=== PATIENT | male | born 1945 | race Hispanic/Latino ===

== ENCOUNTER → 2018-01-02 | Outpatient (CLI) | payer OTHER ==
[~2018-01-02] MED LIST: ALBU90AE IH; AMOX-426 PO; ASPI81TA40 PO; BENZ-51 PO; METO-391 PO; OSEL75 PO; RAMI5CAP21 PO; WARF4TAB8 PO
== END | disposition home or self-care (01) ==
LOC: OIH 10:37
PROVIDERS: ATTEND Orthopaedic Surgery
DX: M16.12 Unilateral primary osteoarthritis, left hip (principal); M24.052 Loose body in left hip; K57.90 Diverticulosis of intestine, part unspecified, without perforation or abscess without bleeding
CPT/HCPCS: 73700

== ENCOUNTER 2018-03-27 06:00 | Day surgery (SDC) | payer OTHER ==
[2018-03-25 10:35] VITALS: BP 124/74
[2018-03-25 10:40] LABS: BASOPHILS % (AUTO) 1.2 % (0.0-5.0); EOSINOPHILS % (AUTO) 1.8 % (0.0-8.0); HEMATOCRIT 43.8 % (42-54); LYMPHOCYTES % (AUTO) 32.9 % (21.0-51.0); MEAN CORPUSCULAR HEMOGLOBIN 31.6 pg (27.0-33.0); MEAN CORPUSCULAR HGB CONC 33.7 g/dL (32.0-36.0); MEAN CORPUSCULAR VOLUME 93.8 fL (79-99); MONOCYTES % (AUTO) 9.1 % (3.0-13.0); NUCLEATED RED BLOOD CELLS 0.2 % (0.0-0.19); PLATELET COUNT (AUTO) 198 K/uL (130-400); RED BLOOD CELL COUNT(AUTO) 4.67 MIL/uL (4.50-6.20); RED CELL DISTRIBUTION WIDTH 14.5 % (11.0-15.5); WHITE BLOOD COUNT (AUTO) 6.5 K/uL (4.8-10.8)
[2018-03-25 10:48] LABS: CREATININE 0.9 mg/dL (0.5-1.5); POTASSIUM 4.6 mmol/L (3.5-5.1)
[2018-03-25 10:53] LABS: APPEARANCE,URINE Clear (CLEAR); BILIRUBIN,URINE Negative (NEGATIVE); COLOR,URINE Yellow (YELLOW); GLUCOSE, URINE (UA) Negative (NEGATIVE); KETONES,URINE Negative (NEGATIVE); LEUKOCYTE ESTERASE ,URINE Negative (NEGATIVE); NITRATE,URINE Negative (NEGATIVE); OCCULT BLOOD,URINE Negative (NEGATIVE); PH,URINE 6.5 (5.0-8.0); PROTEIN,URINE Negative (NEGATIVE)
[2018-03-25 10:58] LABS: INR 2.23 (0.85-1.15); PARTIAL THROMBOPLASTIN TIME 37.8 SEC (26.3-35.5); PROTHROMBIN TIME 23.1 SEC (9.6-11.6)
[2018-03-27] VITALS (9 sets, daily range): BP systolic 110–143; BP diastolic 65–93
[~2018-03-27] VITALS: Ht 182.9 cm; Wt 78.9 kg
[~2018-03-27 06:00] MED LIST changes: -ALBU90AE IH; -AMOX-426 PO; +ATOR40TA69 PO; -BENZ-51 PO; +IBUP-2070 PO; -OSEL75 PO; -RAMI5CAP21 PO; +RAMI5CAP66 PO
[2018-03-27 06:33] LABS: INR 1.22 (0.85-1.15); PROTHROMBIN TIME 12.8 SEC (9.6-11.6)
[2018-03-27] MEDS ORDERED: WARF4TAB72 PO (06:50)
[2018-03-27] MEDS ORDERED: SODIUM CHLORIDE 0.9% 1000ML 1,000 ML IV ONE (06:59)
[2018-03-27] MEDS ORDERED: BIVALIRUDIN 250 MG/VIAL IV ONE (07:42)
[2018-03-27] MEDS ORDERED: IOHEXOL-350 50ML VIAL IV ONE (07:42)
[2018-03-27] MEDS ORDERED: NITROGLYCERIN 5 MG/ML 10 ML VIAL IV ONE (07:42)
[2018-03-27] MEDS ORDERED: LIDOCAINE HCL-MPF 2% 5ML VIAL ONE (07:42)
[2018-03-27] MEDS ORDERED: IOHEXOL 350 MG/ML 100ML INFUS..BTL IV ONE (07:42)
[2018-03-27] MEDS ORDERED: FENTANYL CITRATE PF 50 MCG/1 ML 2ML VIAL ONE (08:00)
[2018-03-27] MEDS ORDERED: MIDAZOLAM HCL 1 MG/ML 2ML VIAL ONE (08:00)
[2018-03-27] MEDS ORDERED: SODIUM CHLORIDE 0.9% 1000ML 1,000 ML IV SCH (08:36)
[2018-03-27] MEDS ORDERED: METOPROLOL TARTRATE 1 MG/ML 5ML VIAL IV PRN (08:45)
[2018-03-27] MEDS ORDERED: GLUCAGON 1MG KIT 1 MG ML IM PRN (08:45)
[2018-03-27] MEDS ORDERED: DEXTROSE 50%-WATER 50 ML DISP.SYRIN IV PRN (08:45)
[2018-03-27] MEDS ORDERED: NITROGLYCERIN 0.4 MG SL TAB SL PRN (08:45)
[2018-03-27] MEDS ORDERED: NITROGLYCERIN 4.1 GM SPRAY TL ONE (08:48)
[2018-03-27] MEDS ORDERED: MORPHINE SULFATE 2 MG/ML 1ML SYG IVP PRN (09:00)
[2018-03-27] MEDS ORDERED: ONDANSETRON HCL MDV 20ML 2 MG/ML VIAL IVP SCH (09:00)
[2018-03-27] MEDS ORDERED: INSULIN HUMULIN R 100 UNIT/ML 3ML SQ SCH (11:30)
== END 2018-03-27 13:23 | disposition home or self-care (01) ==
LOC: DAH 06:00
PROVIDERS: ATTEND Internal Medicine Cardiovascular Disease
DX: I25.118 Atherosclerotic heart disease of native coronary artery with other forms of angina pectoris (principal); I21.19 ST elevation (STEMI) myocardial infarction involving other coronary artery of inferior wall; I87.2 Venous insufficiency (chronic) (peripheral); I48.0 Paroxysmal atrial fibrillation; Z79.01 Long term (current) use of anticoagulants; Z95.5 Presence of coronary angioplasty implant and graft; Z80.9 Family history of malignant neoplasm, unspecified; Z83.3 Family history of diabetes mellitus; Z79.899 Other long term (current) drug therapy; I11.9 Hypertensive heart disease without heart failure; Z98.890 Other specified postprocedural states; I45.10 Unspecified right bundle-branch block
CPT/HCPCS: 36415 ×2; 71045; 80048; 81003; 85025; 85610 ×2; 85730 ×2; 93005 ×2; 93458; A4606; C1760; C1894 ×2; J0583; J1644; J2250; J3010; J3490 ×2; J7030; Q9965; Q9967 ×2; 99156; 99157

== ENCOUNTER → 2018-12-02 | Outpatient (CLI) | payer OTHER ==
[~2018-12-02] MED LIST changes: +WARF4TAB72 PO
== END | disposition home or self-care (01) ==
LOC: RAH 08:39
PROVIDERS: ATTEND Internal Medicine Gastroenterology
DX: K21.9 Gastro-esophageal reflux disease without esophagitis (principal); R14.2 Eructation
CPT/HCPCS: 74240

== ENCOUNTER 2018-12-11 11:29 | Day surgery (SDC) | payer OTHER ==
[~2018-12-11] VITALS: Ht 180.3 cm; Wt 74.2 kg
[2018-12-11] VITALS (20 sets, daily range): BP systolic 112–196; BP diastolic 63–130
[2018-12-11 12:51] LABS: BASOPHILS % (AUTO) 0.9 % (0.0-5.0); EOSINOPHILS % (AUTO) 0.9 % (0.0-8.0); HEMATOCRIT 43.6 % (42-54); MEAN CORPUSCULAR HEMOGLOBIN 33.3 pg (27.0-33.0); MEAN CORPUSCULAR HGB CONC 33.6 g/dL (32.0-36.0); MEAN CORPUSCULAR VOLUME 98.9 fL (79-99); MONOCYTES % (AUTO) 8.1 % (3.0-13.0); NEUTROPHILS % (AUTO) 65.1 % (40.0-77.0); NUCLEATED RED BLOOD CELLS 0.2 % (0.0-0.19); PLATELET COUNT (AUTO) 175 K/uL (130-400); RED BLOOD CELL COUNT(AUTO) 4.41 MIL/uL (4.50-6.20); RED CELL DISTRIBUTION WIDTH 14.8 % (11.0-15.5); WHITE BLOOD COUNT (AUTO) 6.5 K/uL (4.8-10.8)
[2018-12-11 13:04] LABS: CREATININE 1.3 mg/dL (0.5-1.5); POTASSIUM 4.7 mmol/L (3.5-5.1)
[2018-12-11] MEDS ORDERED: FENTANYL CITRATE PF 50 MCG/1 ML 2ML VIAL ONE (13:08)
[2018-12-11] MEDS ORDERED: MIDAZOLAM HCL 1 MG/ML 2ML VIAL ONE (13:09)
[2018-12-11] MEDS ORDERED: METOPROLOL TARTRATE 1 MG/ML 5ML VIAL IV ONE ×2 (13:19→13:24)
[2018-12-11] MEDS ORDERED: METOPROLOL TARTRATE 1 MG/ML 5ML VIAL IV SCH ×2 (13:30→15:45)
[2018-12-11] MEDS ORDERED: DIGOXIN 250 MCG/ML 2ML AMP IV SCH (13:30)
[2018-12-11] MEDS ORDERED: SUCR1TAB2 PO (13:45)
[2018-12-11] MEDS ORDERED: ESOM40CA54 PO (13:45)
[2018-12-11 13:46] LABS: B-TYPE NATRIURETIC PEPTIDE 768 pg/mL (0-100)
[2018-12-11] MEDS ORDERED: NALOXONE HCL 0.4 MG/1 ML ML ONE ×2 (13:56→13:58)
[2018-12-11] MEDS ORDERED: FLUMAZENIL 0.1MG/1ML 5ML VIAL IV ONE (13:59)
[2018-12-11] MEDS ORDERED: FUROSEMIDE 10 MG/ML 4ML VIAL IV SCH (15:00)
--- NOTE | 2018-12-11 16:07 | NUR ---
Time out for cardioversion called out at 1345, Doctor Hoang in the room, adminstered 2mg of versed at 1346,pt stable and awake, admnistered 50mcg of fentanyl at 1349, pt with eyes closed. Cardioverted at 1351. Pt was aroused when cardioverted, than closed his eyes. Oxygen level started dropping to 88 percent Dyana Craig RN was coming into the room to see procedure and assisted pt oxygen level by closing jaw, i applied oxygen at 10 liters, pt oxygen level at 100 percent and stable. Per doctor Hoang Narcan 0.4mg iv push was given at 1355. Pt stable but not arousable new order to administer at 1359 Flumazecan 0.2mg iv times one iv push. Pt was more arouable however doctor requested one more dose of Narcan 0.4mg iv push at 1401. Pt became arousable and alert. Continued to monitor patient post recovery.
== END 2018-12-11 17:53 | disposition home or self-care (01) ==
LOC: DAH 11:29
PROVIDERS: ATTEND Internal Medicine Cardiovascular Disease
DX: I48.0 Paroxysmal atrial fibrillation (principal); I25.119 Atherosclerotic heart disease of native coronary artery with unspecified angina pectoris; Z95.5 Presence of coronary angioplasty implant and graft; I11.9 Hypertensive heart disease without heart failure; I34.0 Nonrheumatic mitral (valve) insufficiency; I21.3 ST elevation (STEMI) myocardial infarction of unspecified site; R07.9 Chest pain, unspecified; Z79.899 Other long term (current) drug therapy; Z98.890 Other specified postprocedural states; Z79.01 Long term (current) use of anticoagulants
CPT/HCPCS: 36415; 80048; 83880; 85025; 92960; 93005; 93306; A4606; J1160; J1940; J2250; J2310 ×2; J3010; J3490 ×4; 99152

== ENCOUNTER → 2018-12-28 | Outpatient (CLI) | payer OTHER ==
[~2018-12-28] MED LIST changes: +ESOM40CA54 PO; +SUCR1TAB2 PO
== END | disposition home or self-care (01) ==
LOC: SHCH 08:29
PROVIDERS: ATTEND Internal Medicine Cardiovascular Disease
DX: I87.2 Venous insufficiency (chronic) (peripheral) (principal)
CPT/HCPCS: 93970

== ENCOUNTER 2019-01-13 05:41 | Day surgery (SDC) | payer OTHER ==
[~2019-01-13] VITALS: Ht 185.4 cm; Wt 71.2 kg
[2019-01-13] VITALS (19 sets, daily range): BP systolic 96–151; BP diastolic 41–92
[~2019-01-13 05:41] MED LIST changes: -ESOM40CA54 PO; -IBUP-2070 PO; +METF-444 PO; +PANT40TA PO; -WARF4TAB72 PO
[2019-01-13] MEDS ORDERED: SODIUM CHLORIDE 0.9% 1000ML 1,000 ML IV ONE (06:05)
[2019-01-13 07:19] LABS: INR 1.43 (0.85-1.15); PROTHROMBIN TIME 14.9 SEC (9.6-11.6)
[2019-01-13] MEDS ORDERED: ESMOLOL HCL 10 MG/ML 10 ML VIAL ONE (07:45)
--- NOTE | 2019-01-13 08:31 | NUR ---
Update Patient unresponsive to calling his name, sternal rub, yelling his name, and shaking his shoulder vigorously. Lisha from GI lab informed to tell Bubba Kaur CRNA when out of procedure as patient was vitally stable. Patient placed on a non-rebreather mask at 15L/min.
[2019-01-13] MEDS ORDERED: DEXTROSE 50%-WATER 50 ML DISP.SYRIN IV ONE (08:42)
--- NOTE | 2019-01-13 08:45 | NUR ---
Update Order to give half an amp of dextrose given per order by Bubba Kaur CRNA.
--- NOTE | 2019-01-13 08:50 | NUR ---
Update DR. COLEMAN CALLED BY Bubba MINAYA TO ASSESS PATIENT TOO. HE ASSESSED PATIENT'S DEEP TENDON REFLEXES TO BILATERAL BRACHIAL, KNEES, AND ACHILLES TENDONS 2+. PUPILS SLUGGISH TO LIGHT ACCOMMODATION BUT ARE ROUND AND EQUAL. HE STATED TO GIVE THE PATIENT 30-40 MORE MINUTES AND THEN CALL HIM IF HE DOES NOT WAKE UP.
== END 2019-01-13 09:30 | disposition home or self-care (01) ==
LOC: DAH 05:41 → ENDO 05:41
PROVIDERS: ATTEND Internal Medicine Gastroenterology
DX: K29.50 Unspecified chronic gastritis without bleeding (principal); R68.81 Early satiety; R12 Heartburn; I45.10 Unspecified right bundle-branch block; I10 Essential (primary) hypertension; I25.10 Atherosclerotic heart disease of native coronary artery without angina pectoris; E78.5 Hyperlipidemia, unspecified; I25.2 Old myocardial infarction; K21.9 Gastro-esophageal reflux disease without esophagitis; M19.90 Unspecified osteoarthritis, unspecified site; M54.5 Low back pain; Z79.82 Long term (current) use of aspirin; Z79.899 Other long term (current) drug therapy; N52.9 Male erectile dysfunction, unspecified; E11.9 Type 2 diabetes mellitus without complications; Z90.49 Acquired absence of other specified parts of digestive tract; Z98.890 Other specified postprocedural states
CPT/HCPCS: 36415; 43239; 82948 ×2; 85610; 88305; 93005; A4606; J3490; J7030; J7070

== ENCOUNTER → 2019-01-20 | Outpatient (CLI) | payer OTHER ==
[~2019-01-20] MED LIST changes: +ESOM40CA54 PO; +FURO20TA4 PO; +METO50CA PO; +WARF2TAB9 PO; +[UNRECOGNIZED DRUG - CODE] PO
== END | disposition home or self-care (01) ==
LOC: RAH 07:31
PROVIDERS: ATTEND Internal Medicine Gastroenterology
DX: K82.4 Cholesterolosis of gallbladder (principal)
CPT/HCPCS: 76700; 93975

== ENCOUNTER 2019-01-21 13:42 | Inpatient (IN) | payer OTHER ==
[~2019-01-21] VITALS: Ht 185.4 cm; Wt 69.6 kg
[~2019-01-21 13:42] MED LIST changes: -ESOM40CA54 PO; -FURO20TA4 PO; -METO50CA PO; -WARF2TAB9 PO; -[UNRECOGNIZED DRUG - CODE] PO
[2019-01-21] MEDS ORDERED: DIGOXIN 250 MCG/ML 2ML AMP ONE (14:49)
[2019-01-21 14:52] LABS: BASOPHILS % (AUTO) 1.3 % (0.0-5.0); EOSINOPHILS % (AUTO) 0.9 % (0.0-8.0); HEMATOCRIT 43.6 % (42-54); LYMPHOCYTES % (AUTO) 20.5 % (21.0-51.0); MEAN CORPUSCULAR HEMOGLOBIN 32.2 pg (27.0-33.0); MEAN CORPUSCULAR HGB CONC 33.2 g/dL (32.0-36.0); MEAN CORPUSCULAR VOLUME 97.2 fL (79-99); MONOCYTES % (AUTO) 7.5 % (3.0-13.0); NEUTROPHILS % (AUTO) 69.8 % (40.0-77.0); NUCLEATED RED BLOOD CELLS 0.1 % (0.0-0.19); PLATELET COUNT (AUTO) 186 K/uL (130-400); RED BLOOD CELL COUNT(AUTO) 4.49 MIL/uL (4.50-6.20); RED CELL DISTRIBUTION WIDTH 13.9 % (11.0-15.5)
[2019-01-21] MEDS ORDERED: SODIUM CHLORIDE 0.9% 50 ML IV ONE (14:57)
[2019-01-21 15:01] LABS: INR 1.8 (0.85-1.15); PARTIAL THROMBOPLASTIN TIME 32.4 SEC (26.3-35.5); PROTHROMBIN TIME 18.7 SEC (9.6-11.6)
[2019-01-21 15:07] LABS: CREATININE 1.1 mg/dL (0.5-1.5)
[2019-01-21 15:12] LABS: ALBUMIN 3.8 g/dL (3.5-5.0); BILIRUBIN,TOTAL 1.4 mg/dL (0.2-1.0); TOTAL PROTEIN, SERUM 6.3 g/dL (6.0-8.3)
[2019-01-21] MEDS ORDERED: DIGOXIN 250 MCG/ML 2ML AMP IV SCH ×2 (15:17→20:30)
[2019-01-21 15:29] LABS: B-TYPE NATRIURETIC PEPTIDE 568 pg/mL (0-100)
[2019-01-21] MEDS ORDERED: LIDOCAINE HCL-MPF 1% 2ML VIAL IJ PRN (15:30)
[2019-01-21] MEDS ORDERED: LACTULOSE 20 GM/30 ML UDCUP PO PRN (15:30)
[2019-01-21] MEDS ORDERED: ZOLPIDEM TARTRATE 5 MG TAB PO PRN (15:30)
[2019-01-21] MEDS ORDERED: POTASSIUM CHLORIDE 20MEQ/100ML 100 ML IV PRN (15:30)
[2019-01-21] MEDS ORDERED: POTASSIUM CHLORIDE 10% ELIXIR 20 MEQ/15 ML UDCUP PO PRN (15:30)
[2019-01-21] MEDS ORDERED: CLONIDINE HCL 0.1 MG TABLET PO PRN (15:30)
[2019-01-21] MEDS ORDERED: DILTIAZEM 125MG+100 ML NS 125 ML IV PRN (15:30)
[2019-01-21] MEDS ORDERED: METOPROLOL TARTRATE 1 MG/ML 5ML VIAL IV PRN (15:30)
[2019-01-21] MEDS ORDERED: [UNRECOGNIZED DRUG - CODE] PO (15:57)
[2019-01-21] MEDS ORDERED: WARF4TAB8 PO (15:57)
[2019-01-21] MEDS ORDERED: ESOM40CA54 PO (15:57)
[2019-01-21] MEDS ORDERED: WARF2TAB9 PO (15:57)
[2019-01-21] MEDS ORDERED: FURO20TA4 PO (15:57)
[2019-01-21] MEDS ORDERED: METO50CA PO (15:57)
[2019-01-21 16:07] VITALS: BP 149/77
[2019-01-21 19:00] VITALS: BP 141/72
[2019-01-21] MEDS: ATORVASTATIN CALCIUM 40 MG TABLET PO SCH ×2 (21:00→21:13)
[2019-01-21] MEDS: LISINOPRIL 20 MG TABLET PO SCH (21:13)
[2019-01-21] MEDS: METOPROLOL TARTRATE 50 MG TAB PO SCH (21:13)
[2019-01-21] MEDS: MAG HYDROX/AL HYDROX/SIMETH ES 30 ML SUSP UDCUP PO PRN (21:14)
[2019-01-21 23:00] VITALS: BP 147/85
[2019-01-22 03:00] VITALS: BP 154/80
[2019-01-22 04:21] LABS: HEMATOCRIT 41.5 % (42-54); MEAN CORPUSCULAR HEMOGLOBIN 32.2 pg (27.0-33.0); MEAN CORPUSCULAR VOLUME 97.7 fL (79-99); NUCLEATED RED BLOOD CELLS 0.1 % (0.0-0.19); PLATELET COUNT (AUTO) 179 K/uL (130-400); RED BLOOD CELL COUNT(AUTO) 4.25 MIL/uL (4.50-6.20); RED CELL DISTRIBUTION WIDTH 13.9 % (11.0-15.5); WHITE BLOOD COUNT (AUTO) 6.7 K/uL (4.8-10.8)
[2019-01-22 04:27] LABS: B-TYPE NATRIURETIC PEPTIDE 1050 pg/mL (0-100)
[2019-01-22 04:31] LABS: POTASSIUM 3.7 mmol/L (3.5-5.1)
[2019-01-22 07:00] VITALS: BP 158/89
[2019-01-22] MEDS: PANTOPRAZOLE SODIUM 40 MG TABLET.DR PO SCH (08:01)
[2019-01-22] MEDS: ASPIRIN 81MG TAB.CHEW PO SCH (08:01)
[2019-01-22] MEDS: METOPROLOL TARTRATE 50 MG TAB PO SCH ×2 (08:01→21:38)
[2019-01-22] MEDS: ENOXAPARIN SODIUM 80 MG/0.8 ML SQ SCH ×2 (08:03→21:38)
[2019-01-22] MEDS: POTASSIUM CHLORIDE 20 MEQ ERTAB PO PRN ×3 (08:14→21:45)
[2019-01-22] MEDS ORDERED: ATORVASTATIN CALCIUM 40 MG TABLET PO SCH (09:00)
[2019-01-22] MEDS ORDERED: METOPROLOL SUCCINATE 50 MG PO SCH (09:00)
[2019-01-22] MEDS ORDERED: FUROSEMIDE 20 MG TABLET PO SCH (09:00)
[2019-01-22] MEDS: FUROSEMIDE 10 MG/ML 4ML VIAL IV SCH ×2 (10:13→21:39)
[2019-01-22 11:55] VITALS: BP 118/78
[2019-01-22 12:06] LABS: CREATINE KINASE, TOTAL 75 U/L (21-232); MYOGLOBIN 47 ng/mL (10-92); TROPONIN I < 0.04 ng/mL (0.00-0.06)
--- NOTE | 2019-01-22 15:29 | NUR ---
DC PLAN VISIT WITH PATIENT AND FAMILY. PATIENT LIVES WITH SPOUSE. INDEPENDENT ABLE TO PERFORM ADL'S. PATIENT HAS NO SERVICES OR DME'S. FEELS SAFE TO RETURN HOME. Addendum: 01/22/19 at 1532 by CHRISTINE HERR RN CM Amended: Links added.
[2019-01-22 16:20] VITALS: BP 136/84
[2019-01-22] MEDS: MAG HYDROX/AL HYDROX/SIMETH ES 30 ML SUSP UDCUP PO PRN (18:12)
[2019-01-22 20:13] VITALS: BP 138/76
[2019-01-22] MEDS: LISINOPRIL 20 MG TABLET PO SCH (21:39)
[2019-01-22] MEDS: ATORVASTATIN CALCIUM 40 MG TABLET PO SCH (21:39)
[2019-01-22] MEDS: ACETAMINOPHEN 325 MG TAB PO PRN (21:43)
[2019-01-23] VITALS (7 sets, daily range): BP systolic 101–135; BP diastolic 50–74
[2019-01-23 04:06] LABS: HEMATOCRIT 46.3 % (42-54); MEAN CORPUSCULAR HEMOGLOBIN 32.5 pg (27.0-33.0); MEAN CORPUSCULAR HGB CONC 33.5 g/dL (32.0-36.0); PLATELET COUNT (AUTO) 201 K/uL (130-400); RED BLOOD CELL COUNT(AUTO) 4.77 MIL/uL (4.50-6.20); RED CELL DISTRIBUTION WIDTH 13.8 % (11.0-15.5); WHITE BLOOD COUNT (AUTO) 7.1 K/uL (4.8-10.8)
[2019-01-23] MEDS: FUROSEMIDE 10 MG/ML 4ML VIAL IV SCH ×3 (08:31→18:28)
[2019-01-23] MEDS: ENOXAPARIN SODIUM 80 MG/0.8 ML SQ SCH ×2 (08:31→20:29)
[2019-01-23] MEDS: METOPROLOL TARTRATE 50 MG TAB PO SCH ×2 (08:31→20:28)
[2019-01-23] MEDS: ASPIRIN 81MG TAB.CHEW PO SCH (08:31)
[2019-01-23] MEDS: PANTOPRAZOLE SODIUM 40 MG TABLET.DR PO SCH (08:31)
[2019-01-23] MEDS: MAG HYDROX/AL HYDROX/SIMETH ES 30 ML SUSP UDCUP PO PRN (08:52)
[2019-01-23] MEDS ORDERED: IOHEXOL 350 MG/ML 100ML INFUS..BTL IV ONE (16:00)
[2019-01-23] MEDS: ATORVASTATIN CALCIUM 40 MG TABLET PO SCH (20:28)
[2019-01-23] MEDS: LISINOPRIL 20 MG TABLET PO SCH (21:00)
[2019-01-24 03:27] VITALS: BP 96/56
[2019-01-24] MEDS: FUROSEMIDE 10 MG/ML 4ML VIAL IV SCH ×2 (03:31→09:26)
[2019-01-24 03:59] LABS: BASOPHILS % (AUTO) 0.8 % (0.0-5.0); EOSINOPHILS % (AUTO) 1.9 % (0.0-8.0); HEMATOCRIT 46.1 % (42-54); LYMPHOCYTES % (AUTO) 30.8 % (21.0-51.0); MEAN CORPUSCULAR HEMOGLOBIN 32.7 pg (27.0-33.0); MEAN CORPUSCULAR HGB CONC 33.2 g/dL (32.0-36.0); MEAN CORPUSCULAR VOLUME 98.4 fL (79-99); MONOCYTES % (AUTO) 9.1 % (3.0-13.0); NEUTROPHILS % (AUTO) 57.4 % (40.0-77.0); NUCLEATED RED BLOOD CELLS 0.2 % (0.0-0.19); PLATELET COUNT (AUTO) 203 K/uL (130-400); RED BLOOD CELL COUNT(AUTO) 4.68 MIL/uL (4.50-6.20); RED CELL DISTRIBUTION WIDTH 13.8 % (11.0-15.5); WHITE BLOOD COUNT (AUTO) 5.9 K/uL (4.8-10.8)
[2019-01-24 04:11] LABS: B-TYPE NATRIURETIC PEPTIDE 189 pg/mL (0-100)
[2019-01-24 04:18] LABS: CREATININE 1.1 mg/dL (0.5-1.5); MAGNESIUM 1.6 mg/dL (1.80-2.40); POTASSIUM 3.4 mmol/L (3.5-5.1)
--- NOTE | 2019-01-24 04:42 | NUR ---
STATUS CALLED TO BEDSIDE PT DIAPHORETIC AND COMPLAINING OF SHORTNESS OF BREATH. VS OBTAINED HR 90'S A FIB/FLUTER, BP 113/62, O2 SAT 99% ON 2LPM NASAL CANNULA. RR 28. GLUCOSE CHECKED 112. HOB ELEVATED AND REPOSITIONED FOR MORE EFFECTIVE BREATHING AND ENCOURAGED TO TAKE SLOW DEEP BREATHS THROUGH NOSE AND OUT MOUTH.
[2019-01-24] MEDS ORDERED: NITROGLYCERIN 0.4 MG SL TAB SL ONE (04:44)
--- NOTE | 2019-01-24 04:45 | NUR ---
STATUS PT THEN BEGAN TO COMPLAIN OF LEFT ARM PAIN AND CHEST PRESSURE. SL NITRO GIVEN AND CARDIOLOGY PAGED.
--- NOTE | 2019-01-24 04:52 | NUR ---
CARDIOLOGY DR. EUFEMIA ORTIZ RETURNED PAGE GIVEN UPDATE ON PT STATUS NEW ORDERS RECEIVED AT THIS TIME. PT STATES HE FEELS BETTER WITH CONTINUED CHEST PRESSURE 2/10 PREVIOUSLY 4-5/10 AND GIVEN 2ND SL NITRO PER DR. ORTIZ. EKG DONE AT THIS TIME.
--- NOTE | 2019-01-24 05:05 | NUR ---
STATUS PT STATES HE FEELS BETTER PRESSURE ALMOST GONE AND SHORTNESS OF BREATH IS RESOLVED. BP 93/55, RR 20, O2 SAT 100% 3LPM HR 90'S A FIB.
[2019-01-24] MEDS: ACETAMINOPHEN 325 MG TAB PO PRN (05:09)
--- NOTE | 2019-01-24 05:30 | NUR ---
STATUS PT STATES HE IS PAIN FREE WITH NO SHORTNESS OF BREATH. BP 106/67, RR 90'S AFIB, RR 18. O2 SAT 100% 3LPM NASAL CANNULA. WILL CONTINUE TO MONITOR.
--- NOTE | 2019-01-24 06:30 | NUR ---
STATUS PT RESTING COMFORTABLY NO CHEST PAIN, NAUSEA, OR SHORTNESS OF BREATH NOTED OR VOICED. WILL CONTINUE TO MONITOR.
[2019-01-24 07:50] VITALS: BP 96/57
[2019-01-24 08:10] LABS: CREATINE KINASE, TOTAL 52 U/L (21-232); MYOGLOBIN 58 ng/mL (10-92); TROPONIN I < 0.04 ng/mL (0.00-0.06)
[2019-01-24] MEDS ORDERED: APIXABAN 5 MG TABLET PO SCH (09:00)
[2019-01-24] MEDS: METOPROLOL TARTRATE 50 MG TAB PO SCH ×2 (09:23→20:53)
[2019-01-24] MEDS: ASPIRIN 81MG TAB.CHEW PO SCH (09:23)
[2019-01-24] MEDS: PANTOPRAZOLE SODIUM 40 MG TABLET.DR PO SCH ×2 (09:24→20:53)
[2019-01-24] MEDS: POTASSIUM CHLORIDE 20 MEQ ERTAB PO PRN ×2 (09:29→12:24)
[2019-01-24] MEDS ORDERED: MAGNESIUM 2GM PREMIX 50ML 50 ML IV PRN ×2 (11:15→11:45)
--- NOTE | 2019-01-24 12:00 | NUR ---
DR SHERIFF DR ORTIZ NOTIFIED OF PATIENT CONDITION, CURRENT HEADACHE, CARDIAC ENZYMES AND EKG. SABA ORDERED FOR AM
[2019-01-24 12:19] VITALS: BP 103/47
[2019-01-24 14:51] LABS: HEMATOCRIT 47.5 % (42-54)
[2019-01-24 15:16] VITALS: BP 118/57
[2019-01-24] MEDS: FUROSEMIDE 20 MG TABLET PO SCH (16:38)
[2019-01-24 19:50] VITALS: BP 116/60
[2019-01-24] MEDS: ATORVASTATIN CALCIUM 40 MG TABLET PO SCH (20:53)
[2019-01-24] MEDS: ENOXAPARIN SODIUM 80 MG/0.8 ML SQ SCH (20:53)
[2019-01-24] MEDS ORDERED: LISINOPRIL 20 MG TABLET PO SCH (21:00)
[2019-01-24 23:26] VITALS: BP 116/67
[2019-01-25 03:39] VITALS: BP 124/68
--- NOTE | 2019-01-25 03:40 | NUR ---
PT STATED FEELING CHEST PRESSURE AND SOB. PLACED ON NASAL CANNULA AT 4LPM. VITALS TAKEN BLOOD PRESSURE 120'S/60'S. AFLUTTER 90'S PER TELE MONITOR. NITROGLYCERIN TABLET X2 GIVEN AT 0341 AND 0346. PT STATES LEFT ARM HURTS WELL, IS ABLE TO MOVE IT AROUND AND SQUEEZE. PT WAS DIAPHORETIC.
[2019-01-25] MEDS: NITROGLYCERIN 0.4 MG SL TAB SL PRN ×2 (03:41→03:46)
--- NOTE | 2019-01-25 03:44 | NUR ---
DR. Bharat ORTIZ NOTIFIED. WAS INFORMED OF PT STATUS CHANGE. CHEST PRESSURE. SOB. VITAL SIGNS. HEART RATE/RHYTHM. NITRO TABS ADMINISTERED X2. STATED NO NEW ORDERS. PT SET FOR STRESS TEST IN THE AM.
[2019-01-25 04:07] LABS: BASOPHILS % (AUTO) 0.4 % (0.0-5.0); EOSINOPHILS % (AUTO) 2.1 % (0.0-8.0); HEMATOCRIT 46.1 % (42-54); MEAN CORPUSCULAR VOLUME 97.2 fL (79-99); MONOCYTES % (AUTO) 8.9 % (3.0-13.0); NEUTROPHILS % (AUTO) 52.6 % (40.0-77.0); NUCLEATED RED BLOOD CELLS 0.1 % (0.0-0.19); PLATELET COUNT (AUTO) 214 K/uL (130-400); RED BLOOD CELL COUNT(AUTO) 4.75 MIL/uL (4.50-6.20); RED CELL DISTRIBUTION WIDTH 13.8 % (11.0-15.5)
[2019-01-25 04:17] LABS: INR 1.08 (0.85-1.15); PARTIAL THROMBOPLASTIN TIME 31.4 SEC (26.3-35.5); PROTHROMBIN TIME 11.3 SEC (9.6-11.6)
[2019-01-25 04:33] LABS: CARBON DIOXIDE 30 mmol/L (21-32); CHLORIDE 104 mmol/L (101-111); CREATINE KINASE, TOTAL 39 U/L (21-232); CREATININE 1.1 mg/dL (0.5-1.5); GLOMERULAR FILTR. RATE CALC 70 mL/min (>60); GLUCOSE,RANDOM 106 mg/dL (70-105); MYOGLOBIN 37 ng/mL (10-92); SODIUM SERUM 142 mmol/L (136-145); TROPONIN I < 0.04 ng/mL (0.00-0.06)
[2019-01-25 04:39] LABS: UREA NITROGEN, BLOOD 29 mg/dL (7-18)
[2019-01-25 04:43] LABS: B-TYPE NATRIURETIC PEPTIDE 204 pg/mL (0-100)
--- NOTE | 2019-01-25 07:30 | NUR ---
AM ASSESSMENT PT LAYING IN BED, HOB ELEVATED 30 DEGREES, RESTING. SPOUSE @ BEDSIDE. A/O X 3. SOB ON EXERTION. NO DISTRESS NOTED. O2 NC @ 2L. DENIES CHEST PAIN OR DISCOMFORT. DENIES PALPITATIONS. TELE: AFLUTTER 70-80s. DENIES N/V AND/OR DIARRHEA. NPO STATUS REINFORCED, POSS YULY SCAN TODAY. UP W/ASSISTANCE. INSTRUCTED TO CALL FOR ASSISTANCE. CALL GIOVANNI W/IN REACH.
[2019-01-25 07:36] VITALS: BP 123/68
[2019-01-25] MEDS: ENOXAPARIN SODIUM 80 MG/0.8 ML SQ SCH (09:00)
[2019-01-25] MEDS: ASPIRIN 81MG TAB.CHEW PO SCH (09:00)
--- NOTE | 2019-01-25 09:34 | NUR ---
MD VISIT DR ANISA URIAS IN TO SEE PT. UPDATED ON PT'S STATUS. YULY SCAN FOR TODAY CXD. PT MAY HAVE DIET. PT MAY BE DISCHARGED HOME TODAY FROM CARDIOLOGY STANDPOINT. MEDICATIONS INDICATED. PT TO F/U W/DR PEREZ.
--- NOTE | 2019-01-25 09:45 | NUR ---
NOTIFICATION Tony CLEARY NETWORK ACCOUNT MANAGER NOTIFIED OF CARDIOLOGY RECOMMENDATIONS & CLEARANCE TO DC PT HOME TODAY.
[2019-01-25] MEDS: METOPROLOL TARTRATE 50 MG TAB PO SCH (09:47)
[2019-01-25] MEDS: FUROSEMIDE 20 MG TABLET PO SCH (09:47)
[2019-01-25] MEDS: PANTOPRAZOLE SODIUM 40 MG TABLET.DR PO SCH (09:47)
--- NOTE | 2019-01-25 10:30 | NUR ---
DISCHARGE VERBAL & WRITTEN DISCHARGE INSTRUCTIONS REVIEWED & GIVEN TO PT & SPOUSE. QUESTIONS ENCOURAGED & CLARIFIED. PROPER CARE & MGT OF AFIB REVIEWED. NEW PRESCRIBED MEDICATIONS REVIEWED. PRESCRIPTION GIVEN TO PT. SIGNED COPY PLACED IN CHART. TELE CASSI REMOVED. IV DISCONTINUED. PT & SPOUSE TO GATHER PERSONAL BELONGINGS. PT WOULD LIKE TO HAVE LUNCH @ HOSPITAL PRIOR TO GOING HOME. PT TO NOTIFY STAFF WHEN READY TO TO BE TAKEN TO PRIVATE VEHICLE.
[2019-01-25 11:36] VITALS: BP 121/63
--- NOTE | 2019-01-25 12:30 | NUR ---
DISCHARGE PT TAKEN TO PRIVATE VEHICLE BY Joo APONTE PCP, ACCOMPANIED BY SPOUSE.
--- NOTE | 2019-01-25 15:30 | NUR ---
0949-patient is ready to be DC per ELIA Powell Addendum: 01/25/19 at 1531 by ANDRIA HURST, PT PT Amended: Links added.
== END 2019-01-25 12:30 | disposition home or self-care (01) | DRG 308 ==
LOC: EDH 13:42 → EDHIP 14:22 → 2DH 16:08
PROVIDERS: ADMIT Internal Medicine; ATTEND Internal Medicine
DX: I48.91 Unspecified atrial fibrillation (principal); I50.23 Acute on chronic systolic (congestive) heart failure; Z79.01 Long term (current) use of anticoagulants; K29.70 Gastritis, unspecified, without bleeding; I42.9 Cardiomyopathy, unspecified; I45.10 Unspecified right bundle-branch block; E11.9 Type 2 diabetes mellitus without complications; E78.5 Hyperlipidemia, unspecified; I11.0 Hypertensive heart disease with heart failure; I25.10 Atherosclerotic heart disease of native coronary artery without angina pectoris; I48.92 Unspecified atrial flutter; Z79.82 Long term (current) use of aspirin; Z79.84 Long term (current) use of oral hypoglycemic drugs; Z79.899 Other long term (current) drug therapy; Z80.1 Family history of malignant neoplasm of trachea, bronchus and lung; Z95.5 Presence of coronary angioplasty implant and graft; Z90.49 Acquired absence of other specified parts of digestive tract
CPT/HCPCS: 36415; 70450; 71045; 71275; 76700; 80048; 80053; 82550; 82948; 83735; 83874; 83880; 84484; 85014; 85018; 85025; 85027; 85610; 85730; 93005; 93308; 93975; G0378; J1160; J1650; J1940; J3475; Q9967

== ENCOUNTER → 2019-02-09 | Outpatient (CLI) | payer OTHER ==
[~2019-02-09] MED LIST changes: -ASPI81TA40 PO; +ESOM40CA54 PO; -METF-444 PO; -METO-391 PO; -PANT40TA PO; -SUCR1TAB2 PO; -WARF4TAB8 PO; +[UNRECOGNIZED DRUG - CODE] PO
== END | disposition home or self-care (01) ==
LOC: RAH 10:26
PROVIDERS: ATTEND Internal Medicine Gastroenterology
DX: R11.2 Nausea with vomiting, unspecified (principal); R68.81 Early satiety
CPT/HCPCS: 78264; A9541

== ENCOUNTER 2019-03-17 06:37 | Inpatient (IN) | payer OTHER | END 2019-03-19 17:55 | disposition home or self-care (01) | LOC: DAH 06:37 → DAHIP 06:38 → 2DH 18:42 | PROC: B246ZZ4 Ultrasonography of Right and Left Heart, Transesophageal (ICD-10-PCS; principal; ~2019-03-17) | PROC: 5A2204Z Restoration of Cardiac Rhythm, Single (ICD-10-PCS; ~2019-03-17) | DX: I48.1 Persistent atrial fibrillation (principal); D68.59 Other primary thrombophilia; I48.91 Unspecified atrial fibrillation; I42.9 Cardiomyopathy, unspecified ==

== ENCOUNTER → 2019-12-13 | Outpatient (CLI) | payer OTHER | END | disposition home or self-care (01) | LOC: SHCH 11:55 | PROVIDERS: ATTEND Internal Medicine Cardiovascular Disease | DX: I48.0 Paroxysmal atrial fibrillation (principal) ==

== ENCOUNTER → 2019-12-23 | Outpatient (CLI) | payer OTHER ==
[~2019-12-23] MED LIST changes: -ATOR40TA69 PO; -ESOM40CA54 PO; -RAMI5CAP66 PO; +REGADENOSON 0.4 MG/5 ML PF SYG IVP SCH; -[UNRECOGNIZED DRUG - CODE] PO
[2019-12-23 10:12] VITALS: BP 118/53; PULSE 87
[2019-12-23 10:14] VITALS: BP 131/57; PULSE 81
[2019-12-23 10:20] VITALS: BP 131/63; PULSE 80
[2019-12-23 10:25] VITALS: BP 132/75; PULSE 78
--- NOTE | 2019-12-23 11:37 | NUR ---
1011 UPON COMPLETION OF LEXISCAN TESTING PT C/O CHEST PRESSURE 6/10 WITH CHILLS FELT DOWN HIS BACK AND BILATERAL LEG PAIN. PT DID NOT BRING NITRO PILLS WITH HIM TODAY ALL VITAL SIGNS REMAIN STABLE AND WNL AT THIS TIME. 1012 PATIENT IS COUGHING AND REPORTS HE HAS HAD THIS COUGH FOR THE LAST 3 DAYS, HE HAS BEEN TAKING ALLERGY MEDICINE FOR THE COUGH. HE DID NOT REPORT HAVING A COUGH TO THE SCREENER UPON ARRIVAL TO THE FACILITY. TEMP WAS 97.2 UPON ARRIVAL THIS AM. 1013 PT REPORTS RIGHT LEG CRAMP 1015 PT REPORTS CHEST PRESSURE IS LESSENING 5/10, THERE ARE NO OTHER S/S OF PAIN OR DISCOMFORT. PT REPORTS HE FEELS THIS PRESSURE OFTEN, LAST TIME WAS YESTERDAY AND HE TOOK 2 NITRO TABS FOR RELIEF. 1020 PT REPORTS CHEST PRESSURE OF 3/10. 1025 PT REPORTS HE HAS NO MORE CHEST PRESSURE AT THIS. PT WAS REPOSITIONED FROM LAYING DOWN TO A SEATED POSITION. PT REPORTS FEELING SLIGHTLY LIGHT HEADED AND REMAINS IN A SEATED POSITION FOR FURTHER MONITORING. 1030 NO C/O PAIN OR DISCOMFORT AT THIS TIME, PT IS RELEASED TO EAT LUNCH WITH INSTRUCTIONS TO RETURN IN 1 HOUR. 1150 PT RETURNED TO FOR FINAL SCAN R/T STRESS TESTING, HE HAS NO C/O PAIN OR DISCOMFORT AT THIS TIME.
== END | disposition home or self-care (01) ==
LOC: SHCH 08:02
PROVIDERS: ATTEND Internal Medicine Cardiovascular Disease
DX: R07.89 Other chest pain (principal)
CPT/HCPCS: 78452; 93017; 96374; A9500 ×2; J2785

== ENCOUNTER → 2021-02-22 | Outpatient (CLI) | payer OTHER ==
[~2021-02-22] MED LIST changes: +APIX5TAB PO; +ATOR40TA69 PO; +ESOM40CA54 PO; +FURO20TA4 PO; +METO-391 PO; +NITR0.4T50 SL; +RAMI2.5C55 PO; -REGADENOSON 0.4 MG/5 ML PF SYG IVP SCH; +[UNRECOGNIZED DRUG - CODE] PO
== END | disposition home or self-care (01) ==
LOC: SHCH 09:22
PROVIDERS: ATTEND Internal Medicine Cardiovascular Disease
DX: I08.0 Rheumatic disorders of both mitral and aortic valves (principal); I48.0 Paroxysmal atrial fibrillation; I47.1 Supraventricular tachycardia; I10 Essential (primary) hypertension; E78.5 Hyperlipidemia, unspecified
CPT/HCPCS: 93306

== ENCOUNTER 2021-05-21 16:20 | Inpatient (IN) | payer OTHER ==
[~2021-05-21] VITALS: Ht 182.9 cm; Wt 79.6 kg
[2021-05-21] MEDS ORDERED: PHARMACY COMMUNICATION MISC SCH (17:00)
[2021-05-21 17:21] VITALS: BP 159/67
[2021-05-21] MEDS ORDERED: DILTIAZEM 125 MG/25 ML INJ 125 MG in 0.9%NACL 100ML 100 ML IV SCH (17:30)
[2021-05-21 17:39] LABS: HEMATOCRIT 43.5 % (42-54); MEAN CORPUSCULAR HEMOGLOBIN 30.7 pg (27.0-33.0); PLATELET COUNT (AUTO) 231 K/uL (130-400); RED BLOOD CELL COUNT(AUTO) 4.53 MIL/uL (4.50-6.20); RED CELL DISTRIBUTION WIDTH 13.3 % (11.0-15.5); WHITE BLOOD COUNT (AUTO) 6.2 K/uL (4.8-10.8)
[2021-05-21 18:18] LABS: ALBUMIN 3.7 g/dL (3.5-5.0); BILIRUBIN,DIRECT 0.2 mg/dL (0.0-0.3); BILIRUBIN,TOTAL 1.1 mg/dL (0.2-1.0); CREATININE 1.1 mg/dL (0.5-1.5); POTASSIUM 3.8 mmol/L (3.5-5.1); TOTAL PROTEIN, SERUM 6.8 g/dL (6.0-8.3)
[2021-05-21 18:40] LABS: BAND NEUTROPHILS % (MANUAL) 1 % (0-2); BASOPHILS % (MANUAL) 1 % (0-2); EOSINOPHILS % (MANUAL) 1 % (1-6); LYMPHOCYTES % (MANUAL) 13 % (22-44); MONOCYTES % (MANUAL) 10 % (2-9); REACTIVE LYMPHOCYTES 14 % (0-0); SEGMENTED NEUTROPHILS % 60 % (40-70)
[2021-05-21 18:41] LABS: MAN.DIFF COMMENT-IMPRESSION MANUAL DIFFERENTIAL; PLATELET MORPHOLOGY COMMENT LARGE PLTS PRESENT
[2021-05-21] MEDS ORDERED: ACETAMINOPHEN 325 MG TAB PO PRN (19:30)
[2021-05-21] MEDS ORDERED: MORPHINE 2 MG SYG IVP ONE (19:30)
[2021-05-21] MEDS ORDERED: ONDANSETRON 4MG INJ IVP PRN (19:30)
[2021-05-21 20:00] VITALS: BP 142/87
[2021-05-21] MEDS ORDERED: SOTALOL HCL 80 MG TABLET PO SCH (20:00)
[2021-05-22] VITALS (8 sets, daily range): BP systolic 104–143; BP diastolic 50–81
[2021-05-22] MEDS ORDERED: NITROGLYCERIN 0.4 MG SL TAB SL ONE (08:57)
[2021-05-22] MEDS: NITROGLYCERIN 0.4 MG SL TAB SL PRN (09:11)
[2021-05-22] MEDS: SOTALOL HCL 80 MG TABLET PO SCH ×2 (11:51→21:15)
[2021-05-22] MEDS ORDERED: DILT120C43 PO (21:29)
[2021-05-22] MEDS ORDERED: BENZ-70 PO (21:30)
[2021-05-23] VITALS: BP 132/66
[2021-05-23 04:00] VITALS: BP 121/63
[2021-05-23 08:00] VITALS: BP 120/66
[2021-05-23 08:02] LABS: HEMATOCRIT 43.6 % (42-54); MEAN CORPUSCULAR HEMOGLOBIN 30.9 pg (27.0-33.0); MEAN CORPUSCULAR HGB CONC 32.3 g/dL (32.0-36.0); MEAN CORPUSCULAR VOLUME 95.6 fL (79-99); RED BLOOD CELL COUNT(AUTO) 4.56 MIL/uL (4.50-6.20); RED CELL DISTRIBUTION WIDTH 13.4 % (11.0-15.5); WHITE BLOOD COUNT (AUTO) 6.4 K/uL (4.8-10.8)
[2021-05-23 08:39] LABS: ALBUMIN 3.3 g/dL (3.5-5.0); BILIRUBIN,TOTAL 1.1 mg/dL (0.2-1.0); CREATININE 0.9 mg/dL (0.5-1.5); MAGNESIUM 1.7 mg/dL (1.80-2.40); PHOSPHORUS 3.7 mg/dL (2.5-4.9); POTASSIUM 4.3 mmol/L (3.5-5.1); TOTAL PROTEIN, SERUM 6.1 g/dL (6.0-8.3)
[2021-05-23] MEDS ORDERED: FENTANYL CITRATE PF 50 MCG/1 ML 2ML VIAL ONE (09:24)
[2021-05-23] MEDS ORDERED: MIDAZOLAM HCL 1 MG/ML 2ML VIAL ONE (09:25)
[2021-05-23 09:34] LABS: INR 1.07 (0.85-1.15); PROTHROMBIN TIME 11.6 SEC (9.6-11.6)
[2021-05-23 09:35] LABS: PARTIAL THROMBOPLASTIN TIME 27.8 SEC (26.3-35.5)
[2021-05-23] MEDS: SOTALOL HCL 80 MG TABLET PO SCH (10:40)
[2021-05-23] MEDS ORDERED: NALOXONE HCL 0.4 MG/1 ML ML ONE (11:10)
[2021-05-23] MEDS: NITROGLYCERIN 0.4 MG SL TAB SL PRN (11:14)
[2021-05-23 11:22] LABS: ABG BASE EXCESS -2.1 mmol/L (-2.0-3.0); ABG OXYGEN SATURATION 99.3 % (95.0-99.0); ABG PCO2 36 mmHg (35-48)
[2021-05-23] MEDS ORDERED: FLUMAZENIL 0.1MG/1ML 5ML VIAL IV SCH (11:30)
[2021-05-23 12:00] VITALS: BP 158/84
[2021-05-23 16:00] VITALS: BP 145/62
[2021-05-23] MEDS ORDERED: SOTA120T PO (17:22)
== END 2021-05-23 17:40 | disposition home or self-care (01) | DRG 310 ==
LOC: EDH 16:20 → EDHIP 16:21 → 4DH 17:06
PROVIDERS: ADMIT Hospitalist; ATTEND Hospitalist
PROC: B246ZZ4 Ultrasonography of Right and Left Heart, Transesophageal (ICD-10-PCS; principal; 2021-05-23)
PROC: 5A2204Z Restoration of Cardiac Rhythm, Single (ICD-10-PCS; 2021-05-23)
DX: I48.19 Other persistent atrial fibrillation (principal); I45.10 Unspecified right bundle-branch block; E11.9 Type 2 diabetes mellitus without complications; I25.10 Atherosclerotic heart disease of native coronary artery without angina pectoris; I10 Essential (primary) hypertension; Z95.5 Presence of coronary angioplasty implant and graft; I25.2 Old myocardial infarction; Z83.3 Family history of diabetes mellitus; Z82.49 Family history of ischemic heart disease and other diseases of the circulatory system; Z80.9 Family history of malignant neoplasm, unspecified
CPT/HCPCS: 36415; 36600; 80048; 80053; 80076; 82435; 82803; 82947; 82948; 83605; 83735; 84100; 84132; 84295; 84484; 85018; 85025; 85027; 85610; 85730; 92960; 93005; 93313; 96374; 99152; 99153; G0378; J2250; J2310; J3010; J3490

== ENCOUNTER 2021-05-30 20:04 | Inpatient (IN) | payer OTHER ==
[~2021-05-30] VITALS: Ht 185.4 cm; Wt 78.9 kg
[~2021-05-30 20:04] MED LIST changes: +BENZ-70 PO; +DILT120C43 PO; -FURO20TA4 PO; -METO-391 PO; +SOTA120T PO
[2021-05-30 21:12] LABS: ABG BASE EXCESS -2.5 mmol/L (-2.0-3.0); ABG HCO3 20.6 mmol/L (21.0-28.0); ABG OXYGEN SATURATION 97.5 % (95.0-99.0); ABG PCO2 31 mmHg (35-48)
[2021-05-30 21:12] LABS: BASOPHILS % (AUTO) 1.1 % (0.0-5.0); EOSINOPHILS % (AUTO) 2.6 % (0.0-8.0); HEMATOCRIT 47.5 % (42-54); LYMPHOCYTES % (AUTO) 37.4 % (21.0-51.0); MEAN CORPUSCULAR HEMOGLOBIN 30.7 pg (27.0-33.0); MEAN CORPUSCULAR HGB CONC 32.6 g/dL (32.0-36.0); MEAN CORPUSCULAR VOLUME 94.1 fL (79-99); MONOCYTES % (AUTO) 9.7 % (3.0-13.0); NEUTROPHILS % (AUTO) 48.9 % (40.0-77.0); PLATELET COUNT (AUTO) 227 K/uL (130-400); RED BLOOD CELL COUNT(AUTO) 5.05 MIL/uL (4.50-6.20); RED CELL DISTRIBUTION WIDTH 13.2 % (11.0-15.5); WHITE BLOOD COUNT (AUTO) 7.4 K/uL (4.8-10.8)
[2021-05-30] MEDS ORDERED: FURO20TA4 PO (21:19)
[2021-05-30] MEDS ORDERED: PRED10TA3 PO (21:19)
[2021-05-30] MEDS ORDERED: PIND10TA2 PO (21:19)
[2021-05-30 21:23] LABS: CREATININE 1.3 mg/dL (0.5-1.5); POTASSIUM 4.6 mmol/L (3.5-5.1)
[2021-05-30 21:24] LABS: INR 1.06 (0.85-1.15); PROTHROMBIN TIME 11.5 SEC (9.6-11.6)
[2021-05-30 21:25] LABS: PARTIAL THROMBOPLASTIN TIME 26.8 SEC (26.3-35.5)
[2021-05-30 21:34] LABS: B-TYPE NATRIURETIC PEPTIDE 365 pg/mL (0-100)
[2021-05-30 21:35] LABS: ALBUMIN 3.8 g/dL (3.5-5.0); BILIRUBIN,TOTAL 0.9 mg/dL (0.2-1.0); TOTAL PROTEIN, SERUM 7.2 g/dL (6.0-8.3)
[2021-05-30] MEDS ORDERED: IOHEXOL-350 75 ML VIAL IV ONE (21:50)
[2021-05-30] MEDS ORDERED: HYDROCODONE/ACETAMINOPHEN 5/325 MG TAB PO PRN (23:00)
[2021-05-30] MEDS ORDERED: ACETAMINOPHEN 325 MG TAB PO PRN ×2 (23:00)
[2021-05-30] MEDS ORDERED: LACTULOSE 20 GM/30 ML UDCUP PO PRN (23:00)
[2021-05-30] MEDS ORDERED: ZOLPIDEM TARTRATE 5 MG TAB PO PRN (23:00)
[2021-05-30] MEDS ORDERED: MAG/ALUM/SIMETH 30 ML UDCUP PO PRN (23:00)
[2021-05-30] MEDS ORDERED: ONDANSETRON 4MG INJ IV PRN (23:00)
[2021-05-30] MEDS ORDERED: NITROGLYCERIN 0.4 MG SL TAB SL PRN (23:00)
[2021-05-31] VITALS (12 sets, daily range): BP systolic 111–176; BP diastolic 50–113
[2021-05-31] MEDS: SOLU-MEDROL 40MG VIAL IVP SCH ×4 (00:37→23:19)
[2021-05-31] MEDS: IPRATROPIUM/ALBUTEROL SULFATE 3 ML SOLUTION IH SCH ×3 (01:04→11:16)
[2021-05-31 05:53] LABS: BASOPHILS % (AUTO) 0.2 % (0.0-5.0); EOSINOPHILS % (AUTO) 0.2 % (0.0-8.0); HEMATOCRIT 47.6 % (42-54); LYMPHOCYTES % (AUTO) 15.5 % (21.0-51.0); MEAN CORPUSCULAR HEMOGLOBIN 31.2 pg (27.0-33.0); MEAN CORPUSCULAR VOLUME 94.6 fL (79-99); MONOCYTES % (AUTO) 1.4 % (3.0-13.0); NEUTROPHILS % (AUTO) 82.5 % (40.0-77.0); PLATELET COUNT (AUTO) 222 K/uL (130-400); RED BLOOD CELL COUNT(AUTO) 5.03 MIL/uL (4.50-6.20); RED CELL DISTRIBUTION WIDTH 13.2 % (11.0-15.5); WHITE BLOOD COUNT (AUTO) 8.3 K/uL (4.8-10.8)
[2021-05-31 06:05] LABS: CREATININE 1.1 mg/dL (0.5-1.5); POTASSIUM 4.2 mmol/L (3.5-5.1)
[2021-05-31] MEDS: APIXABAN 5 MG TABLET PO SCH ×2 (08:17→20:21)
[2021-05-31] MEDS: FAMOTIDINE 20MG VIAL IV SCH (08:17)
[2021-05-31] MEDS: SOTALOL HCL 80 MG TABLET PO SCH ×2 (08:17→20:20)
[2021-05-31] MEDS: FUROSEMIDE 20 MG TABLET PO SCH (08:17)
[2021-05-31] MEDS: DILTIAZEM 120MG SR CAP PO SCH (08:17)
[2021-05-31] MEDS ORDERED: NON-FORMULARY MEDICATION 1 EACH (Pindolol 5 MG) PO SCH (09:00)
[2021-05-31] MEDS ORDERED: MIDAZOLAM HCL 1 MG/ML 2ML VIAL IVP ONE (11:00)
[2021-05-31] MEDS ORDERED: FENTANYL CITRATE PF 50 MCG/1 ML 2ML VIAL IVP ONE (11:00)
[2021-05-31] MEDS ORDERED: IPRATROPIUM/ALBUTEROL SULFATE 3 ML SOLUTION IH PRN (13:00)
[2021-05-31] MEDS ORDERED: MAGNESIUM 2GM PREMIX 50ML 50 ML IV ONE (13:23)
[2021-05-31] MEDS ORDERED: MAGNESIUM 2GM PREMIX 50ML 50 ML IV PRN (13:30)
[2021-05-31] MEDS ORDERED: DEXTROSE 50%-WATER 50 ML DISP.SYRIN IV PRN (17:00)
[2021-05-31] MEDS ORDERED: GLUCAGON 1MG KIT 1 MG ML IM PRN (17:00)
[2021-05-31] MEDS: ATORVASTATIN 40 MG TABLET PO SCH (20:21)
[2021-05-31] MEDS: LISINOPRIL 10 MG TABLET PO SCH (20:22)
[2021-05-31] MEDS: INSULIN HUMULIN R 100 UNIT/ML 3ML SQ SCH (20:23)
[2021-06-01] VITALS (7 sets, daily range): BP systolic 113–131; BP diastolic 52–71
[2021-06-01 04:53] LABS: HEMATOCRIT 41.6 % (42-54); MEAN CORPUSCULAR HEMOGLOBIN 30.5 pg (27.0-33.0); MEAN CORPUSCULAR HGB CONC 32.2 g/dL (32.0-36.0); MEAN CORPUSCULAR VOLUME 94.5 fL (79-99); RED BLOOD CELL COUNT(AUTO) 4.4 MIL/uL (4.50-6.20); RED CELL DISTRIBUTION WIDTH 13.1 % (11.0-15.5); WHITE BLOOD COUNT (AUTO) 10.6 K/uL (4.8-10.8)
[2021-06-01 05:03] LABS: CREATININE 1.2 mg/dL (0.5-1.5); MAGNESIUM 1.8 mg/dL (1.80-2.40); POTASSIUM 4.3 mmol/L (3.5-5.1)
[2021-06-01] MEDS: INSULIN HUMULIN R 100 UNIT/ML 3ML SQ SCH ×4 (05:50→19:56)
[2021-06-01] MEDS: SOLU-MEDROL 40MG VIAL IVP SCH ×3 (05:54→23:19)
[2021-06-01] MEDS ORDERED: MAGNESIUM 2GM PREMIX 50ML 50 ML IV PRN (07:30)
[2021-06-01] MEDS: FAMOTIDINE 20MG VIAL IV SCH (09:41)
[2021-06-01] MEDS: SOTALOL HCL 80 MG TABLET PO SCH ×2 (09:42→21:07)
[2021-06-01] MEDS: APIXABAN 5 MG TABLET PO SCH ×2 (09:42→21:07)
[2021-06-01] MEDS: DILTIAZEM 120MG SR CAP PO SCH (09:42)
[2021-06-01] MEDS: FUROSEMIDE 20 MG TABLET PO SCH (09:42)
[2021-06-01] MEDS: LISINOPRIL 10 MG TABLET PO SCH (21:07)
[2021-06-01] MEDS: ATORVASTATIN 40 MG TABLET PO SCH (21:07)
[2021-06-02 04:06] VITALS: BP 115/58
[2021-06-02 04:49] LABS: BASOPHILS % (AUTO) 0.1 % (0.0-5.0); HEMATOCRIT 37.4 % (42-54); LYMPHOCYTES % (AUTO) 7.5 % (21.0-51.0); MEAN CORPUSCULAR HEMOGLOBIN 30.3 pg (27.0-33.0); MEAN CORPUSCULAR HGB CONC 32.4 g/dL (32.0-36.0); MEAN CORPUSCULAR VOLUME 93.7 fL (79-99); MONOCYTES % (AUTO) 2.3 % (3.0-13.0); NEUTROPHILS % (AUTO) 89.4 % (40.0-77.0); PLATELET COUNT (AUTO) 190 K/uL (130-400); RED BLOOD CELL COUNT(AUTO) 3.99 MIL/uL (4.50-6.20); RED CELL DISTRIBUTION WIDTH 13.3 % (11.0-15.5); WHITE BLOOD COUNT (AUTO) 15.2 K/uL (4.8-10.8)
[2021-06-02 05:19] LABS: ALBUMIN 3.1 g/dL (3.5-5.0); BILIRUBIN,TOTAL 0.7 mg/dL (0.2-1.0); CREATININE 1.2 mg/dL (0.5-1.5); POTASSIUM 4.5 mmol/L (3.5-5.1); TOTAL PROTEIN, SERUM 5.9 g/dL (6.0-8.3)
[2021-06-02] MEDS: INSULIN HUMULIN R 100 UNIT/ML 3ML SQ SCH ×4 (06:07→20:19)
[2021-06-02] MEDS: SOLU-MEDROL 40MG VIAL IVP SCH ×4 (06:21→20:16)
[2021-06-02 07:00] VITALS: BP 126/64
[2021-06-02] MEDS: APIXABAN 5 MG TABLET PO SCH ×2 (09:19→20:00)
[2021-06-02] MEDS: FAMOTIDINE 20MG VIAL IV SCH (09:19)
[2021-06-02] MEDS: SOTALOL HCL 80 MG TABLET PO SCH ×2 (09:19→20:01)
[2021-06-02] MEDS: DILTIAZEM 120MG SR CAP PO SCH (09:20)
[2021-06-02] MEDS: FUROSEMIDE 20 MG TABLET PO SCH (09:20)
[2021-06-02 11:00] VITALS: BP 143/75
[2021-06-02 16:00] VITALS: BP 119/60
[2021-06-02] MEDS: ATORVASTATIN 40 MG TABLET PO SCH (19:59)
[2021-06-02] MEDS: LISINOPRIL 10 MG TABLET PO SCH (20:00)
[2021-06-02 20:33] VITALS: BP 137/89
[2021-06-02] MEDS: GUAIFENESIN-DM 200/20 MG 10 ML PO PRN (20:38)
[2021-06-02 23:59] VITALS: BP 148/69
[2021-06-03 03:40] VITALS: BP 126/59
[2021-06-03] MEDS: SOLU-MEDROL 40MG VIAL IVP SCH ×2 (04:47→15:00)
[2021-06-03] MEDS: INSULIN HUMULIN R 100 UNIT/ML 3ML SQ SCH ×2 (05:23→11:30)
[2021-06-03] MEDS: GUAIFENESIN-DM 200/20 MG 10 ML PO PRN (05:23)
[2021-06-03 07:22] VITALS: BP 144/83
[2021-06-03] MEDS: DILTIAZEM 120MG SR CAP PO SCH (09:37)
[2021-06-03] MEDS: APIXABAN 5 MG TABLET PO SCH (09:37)
[2021-06-03] MEDS: FUROSEMIDE 20 MG TABLET PO SCH (09:38)
[2021-06-03] MEDS: FAMOTIDINE 20MG VIAL IV SCH (09:38)
[2021-06-03] MEDS: SOTALOL HCL 80 MG TABLET PO SCH (09:38)
[2021-06-03 11:19] VITALS: BP 141/60
[2021-06-03 15:32] VITALS: BP 119/68
== END 2021-06-03 17:57 | disposition home or self-care (01) | DRG 193 ==
LOC: EDH 20:04 → EDHIP 20:05 → OBSVTOIN 20:05 → 4DH 05-31 10:50
PROVIDERS: ADMIT Internal Medicine Critical Care Medicine; ATTEND Internal Medicine Critical Care Medicine
PROC: 5A2204Z Restoration of Cardiac Rhythm, Single (ICD-10-PCS; principal; 2021-05-31)
DX: J12.9 Viral pneumonia, unspecified (principal); I50.33 Acute on chronic diastolic (congestive) heart failure; I48.19 Other persistent atrial fibrillation; N17.9 Acute kidney failure, unspecified; E11.9 Type 2 diabetes mellitus without complications; Z20.822 Contact with and (suspected) exposure to COVID-19; I25.10 Atherosclerotic heart disease of native coronary artery without angina pectoris; K21.9 Gastro-esophageal reflux disease without esophagitis; E78.5 Hyperlipidemia, unspecified; E78.00 Pure hypercholesterolemia, unspecified; I34.0 Nonrheumatic mitral (valve) insufficiency; I11.0 Hypertensive heart disease with heart failure; I25.2 Old myocardial infarction; Z79.84 Long term (current) use of oral hypoglycemic drugs; Z79.01 Long term (current) use of anticoagulants; Z79.899 Other long term (current) drug therapy; Z95.5 Presence of coronary angioplasty implant and graft; Z83.3 Family history of diabetes mellitus; Z82.49 Family history of ischemic heart disease and other diseases of the circulatory system
CPT/HCPCS: 36415; 36600; 71045; 71275; 80048; 80053; 82550; 82803; 82948; 83735; 83874; 83880; 84145; 84484; 85025; 85027; 85610; 85730; 87040; 87635; 93005; 94640; 94664; G0378; J1815; J2250; J2920; J3010; J3475; J3490; Q9967

== ENCOUNTER → 2021-09-17 | Outpatient (CLI) | payer OTHER ==
[~2021-09-17] MED LIST changes: +FURO20TA4 PO; +PRED10TA3 PO; +REGADENOSON 0.4 MG/5 ML PF SYG IVP SCH
== END | disposition home or self-care (01) ==
LOC: SHCH 08:36
PROVIDERS: ATTEND Internal Medicine Cardiovascular Disease
DX: I48.0 Paroxysmal atrial fibrillation (principal); R07.9 Chest pain, unspecified; I45.10 Unspecified right bundle-branch block
CPT/HCPCS: 78452; 93017; 96374; A9500 ×2; J2785

== ENCOUNTER → 2023-03-04 | Outpatient (CLI) | payer OTHER ==
[~2023-03-04] MED LIST changes: +BENZ-226 PO; -BENZ-70 PO; -REGADENOSON 0.4 MG/5 ML PF SYG IVP SCH
[2023-03-04 16:20] LABS: BASOPHILS # (AUTO) 0.06 K/uL (0.00-0.20); BASOPHILS % (AUTO) 0.7 % (0.0-5.0); EOSINOPHILS # (AUTO) 0.45 K/uL (0.00-0.70); EOSINOPHILS % (AUTO) 5.4 % (0.0-8.0); HEMATOCRIT 40.7 % (42-54); IMMATURE GRANULOCYTE ABSOLUTE 0.02 K/uL (0-1); LYMPHOCYTES # (AUTO) 1.9 K/uL (1.0-4.8); MEAN CORPUSCULAR HGB CONC 31.4 g/dL (32.0-36.0); MEAN CORPUSCULAR VOLUME 95.3 fL (79-99); MONOCYTES # (AUTO) 0.9 K/uL (0.1-1.0); MONOCYTES % (AUTO) 10.6 % (3.0-13.0); NEUTROPHILS % (AUTO) 60.1 % (40.0-77.0); PLATELET COUNT (AUTO) 275 K/uL (130-400); RED BLOOD CELL COUNT(AUTO) 4.27 MIL/uL (4.50-6.20); RED CELL DISTRIBUTION WIDTH 13.5 % (11.0-15.5); WHITE BLOOD COUNT (AUTO) 8.3 K/uL (4.8-10.8)
[2023-03-04 16:50] LABS: ALBUMIN 3.6 g/dL (3.5-5.0); BILIRUBIN,TOTAL 0.6 mg/dL (0.2-1.0); CREATININE 0.8 mg/dL (0.5-1.5); POTASSIUM 4.5 mmol/L (3.5-5.1); THYROID STIMULATING HORMONE 1.97 uIU/mL (0.36-3.74); TOTAL PROTEIN, SERUM 7.5 g/dL (6.0-8.3)
== END | disposition home or self-care (01) ==
LOC: LAB 11:42
PROVIDERS: ATTEND Internal Medicine Cardiovascular Disease
DX: I48.0 Paroxysmal atrial fibrillation (principal); I25.10 Atherosclerotic heart disease of native coronary artery without angina pectoris; I87.2 Venous insufficiency (chronic) (peripheral); I11.9 Hypertensive heart disease without heart failure; I49.1 Atrial premature depolarization; I73.9 Peripheral vascular disease, unspecified
CPT/HCPCS: 36415; 80053; 83880; 84443; 84484; 85025